=== PATIENT | female | born 1995 | race Caucasian/White ===

== ENCOUNTER 2020-05-19 18:27 | Inpatient (IN) | payer MEDICAID, SELFPAY ==
[2020-05-19] VITALS (12 sets, daily range): BP systolic 112–129; BP diastolic 60–74; PULSE 69–76; RESP 16; TEMP 36.2–36.7; O2SAT 98; BMI 38.7
[2020-05-19] MEDS: Lactated Ringers 1,000 ML 50 ML IV (18:00)
[2020-05-19 18:08] LABS: ROM Internal Control Test YES-OK TO RESULT pt. (Internal QC)
[2020-05-19 18:11] LABS: ROM Patient Test POSITIVE (Negative)
--- NOTE | 2020-05-19 18:52 | HP.PCM_ITS ---
- Problem List (1) Active labor at term Status: Acute (2) SROM (spontaneous rupture of membranes) Status: Acute (3) Genital herpes complicating Status: Acute (4) History of depressed bipolar disorder Status: Acute (5) Borderline personality disorder Status: Acute (6) PTSD (post-traumatic stress disorder) Status: Acute (7) Late care Status: Acute (8) Marijuana use Status: Acute (9) History of spontaneous Status: Acute History Date of Admission: 05/19/20 Final CAR: 05/20/20 Final CAR Source: US >20 weeks Gestational age: 39 Weeks and 6 Days History of this : This is a 24 year-old, G [3], P [1011], at 39 weeks 6 days gestational age. Presented to office today for visit and requested membrane stripping. After appointment today she started having contractions around 10am and felt fluid leakage. She feels she has been leaking since that time. No vaginal bleeding. Good movement. Smoking Status: Former smoker Alcohol: None Substance Use Type: Marijuana Number of Fetus(es): 1 NST - FHR Rate Baby A Baseline: 125 Variability:: Moderate Accelerations:: 15 x 15 Decelerations:: None NST Reactive:: Yes FHR Category:: Category I Uterine Activity:: every 2-3 minutes, strong History Past Pregnancies: Past Pregnancies Delivery Date Name GA/ Weeks Outcome Route Wt Infant Sex Labor Length Anesthesia Delivery Location Provider FOB Labs: RPR negative HIV negative HbsAG negative Rubella Immune O positive Hep C negative GC/CT negative GBS negative Expected Delivery Method: Spontaneous Vaginal Review of Systems Constitutional: Denies: Chills, Fever, Weight Change HEENT: Denies: Head Aches, Sinus Congestion, Sinus Drainage Cardiovascular: Denies: Chest Pain, Palpitations Respiratory: Denies: Cough, Shortness of breath at rest, Sputum production Gastrointestinal: Denies: Abdominal Pain, Nausea, Vomiting Genitourinary: Denies: Dysuria Skin: Denies: Rash, Wounds Neurological: Denies: Numbness, Tingling, Focal weakness Psychiatric: Denies: Anxiety, Depression, Homicidal Ideations, Suicidal Ideations Physical Exam Vitals: Vital Signs Pulse BP 74 117/60 05/19/20 18:02 05/19/20 18:02 General: Alert, Oriented x3, Cooperative HEENT: Atraumatic, Normocephalic Cardiovascular: Regular rate, Regular Rhythm, No murmurs Lungs: Clear to auscultation, Normal air movement, No rhonchi, No wheeze Abdomen: Bowel Sounds Present, Gravid Extremities:: No edema Neurological: Deep Tendon Reflexes 2+/4 and Symmetrical. Negative for: Clonus STAFF PSYCHIATRIST: Normal external genitalia Estimated gestational size: Appropriate for gestational size Presentation: Cephalic Cervix Dilation (cm): 4 - Per Nubia, RN Station: -1 Effacement (%): 90 - AROM clear fluid Assessment/Plan All Active Problems Active labor at term (Acute) SROM (spontaneous rupture of membranes) (Acute) Genital herpes complicating (Acute) History of depressed bipolar disorder (Acute) Borderline personality disorder (Acute) PTSD (post-traumatic stress disorder) (Acute) Late care (Acute) Marijuana use (Acute) History of spontaneous (Acute) This is a 24 year-old, G [3], P [1011], at 39 weeks 6 days gestational age. A:Active Labor SROM Category 1 FHT GBS negative History of genital herpes P: 1)Admit to labor and delivery 2) IV saline lock, labs 3) Continuous EFM 4) Pain management upon request 5) notified of patient status in labor.
[2020-05-19 19:06] LABS: Absolute Lymphocyte Count 2.62 X10^3/uL (0.83-4.51); Absolute Neutrophil Count 12.1 X10^3/uL (2.0-7.7); Basophil# 0.05 X10^3/uL; Basophil% 0.3 % (0-1); Eosinophil# 0.14 X10^3/uL; Eosinophils% 0.9 % (0-5); Hematocrit 33.1 % (37-47); Hemoglobin 10.8 g/dL (12.0-15.0); Lymphocyte # 2.62 X10^3/ul (4.0); Lymphocyte % 16.1 % (19-41); Mean Corp Hgb Conc 32.6 g/dL (32-36); Mean Corpuscular Hgb 28.3 pg (27.0-32.0); Mean Corpuscular Volume 86.6 fL (81-99); Monocyte# 1.16 X10^3/uL; Monocyte% 7.1 % (0-10); NRBC Flagged by Analyzer 0 % (0-5); Neutrophil # 12.11 X10^3/uL (2.7-7.7); Neutrophil % 74.4 % (47-70); Platelet Count 197 K/mm3 (150-450); RBC Distribution Width CV 14.7 % (11.6-14.6); RBC Distribution Width SD 45.9 fl (35.1-43.9); Red Blood Count 3.82 M/mm3 (4.2-5.4); White Blood Count 16.3 K/mm3 (4.4-11.0)
[2020-05-19] MEDS: Oxytocin 30 units/NS 500 ml 30 UNITS/500 ML IV.SOLN 334 UNITS IV (20:35)
--- NOTE | 2020-05-19 20:41 | PCM.OPRPT ---
Problem List (1) Active labor at term Status: Acute (2) SROM (spontaneous rupture of membranes) Status: Acute (3) Genital herpes complicating Status: Acute (4) History of depressed bipolar disorder Status: Acute (5) Borderline personality disorder Status: Acute (6) PTSD (post-traumatic stress disorder) Status: Acute (7) Late care Status: Acute (8) Marijuana use Status: Acute (9) History of spontaneous Status: Acute (10) Vaginal delivery Status: Acute Vaginal Delivery Maternal Presentation: Active Labor Amniotic Membrane Rupture Type: Spontaneous Amniotic Fluid Description: Clear Final CAR Source: US <20 weeks Gestational age: 39w6d Date of Procedure: 05/19/20 Pre-Operative Diagnosis: active labor Post-Operative Diagnosis: Surgery/ Procedure Performed: Spontaneous Vaginal Delivery Type of Anesthesia: None Description of Procedure: Progressed quickly from 4cm to complete. Strong urge to push. Called to hospital when patient 9cm. Upon arrival infant delivered. Infant head delivered by NIKOLAY Delacruz. on unit and delivered body without complication. I arrived and on abdomen skin to skin. Mouth and nares wiped for secretions, spontaneous cry. Pitocin started for active 3rd stage management. Placenta delivered with maternal effort, intact, 3 vessel cord. Perineum inspected and revealed intact perineum. Vaginal sweep completed. Fundus firm, hemostasis achieved, 200ml EBL. Sponge and instrument count correct. Mom and baby stable. Family bonding well. notified. Presentation: Vertex Placental Delivery Description: Spontaneous Placenta Disposition: [facility] Cord Vessel Description: 3 Vessels Cord Entanglement: None Estimated Blood Loss: 200ml A gender: Male (1 minute): 8 (5 minute): 9 Episiotomy Description: None Laceration: None Medications given after delivery: IV Pitocin Complications: None
[2020-05-19] MEDS: Ibuprofen 600 MG Tablet PO (21:31)
[2020-05-19 21:36] LABS: Probe Check PASS; Specimen Processing Control PASS
[2020-05-19] MEDS: Acetaminophen 500 MG Tablet 1000 MG PO (22:34)
[2020-05-19] MEDS: Dibucaine 30 GM Tube 1 APPLIC TOPICAL (22:36)
[2020-05-20] VITALS (11 sets, daily range): BP systolic 112–130; BP diastolic 57–75; PULSE 69–76; RESP 16–18; TEMP 36.1–36.7; O2SAT 98–100
--- NOTE | 2020-05-20 00:30 | NURSING ---
Report received from Aminta LINK, taking over pt care at this time.
--- NOTE | 2020-05-20 00:30 | NURSING ---
report given to robyn LINK. that rn to assume care of pt at this time.
--- NOTE | 2020-05-20 01:20 | NURSING ---
Pt emptied bladder per report, requesting IV to be removed.
--- NOTE | 2020-05-20 03:45 | PCM.PN.OB ---
Patient Problems: Active and Suspected Problems Active labor at term (Acute) SROM (spontaneous rupture of membranes) (Acute) Genital herpes complicating (Acute) History of depressed bipolar disorder (Acute) Borderline personality disorder (Acute) PTSD (post-traumatic stress disorder) (Acute) Late care (Acute) Marijuana use (Acute) History of spontaneous (Acute) Vaginal delivery (Acute) Subjective: Doing well per patient and nursing staff. Ambulating and taking PO without difficulty. Voiding and passing flatus. Lochia normal. pain controlled. Bottle feeding. - Physical Exam Vitals/I&O's: Vital Signs Temp Pulse Resp BP Pulse Ox 97.9 F 69 16 112/57 L 98 05/20/20 00:15 05/20/20 00:16 05/20/20 00:15 05/20/20 00:16 05/19/20 22:39 Oxygen Delivery Method Room Air Weight: 218 lb 8 oz Body Mass Index (BMI) 38.7 Intake and Output for Last 24 Hours 05/18/20 05/19/20 05/20/20 23:59 23:59 23:59 Intake Total 628.33 / 628.33 Balance 628.33 / 628.33 General: Alert, Cooperative HEENT: Atraumatic, Normocephalic Neck: Trachea Midline Lungs: Clear to auscultation, Normal air movement, No rhonchi, No wheeze Cardiovascular: Regular rate, Regular Rhythm, No murmurs Abdomen: Bowel Sounds Present, Soft, Non Tender Extremities: No edema Psych/Mental Status: Normal Affect, Appropriate Laboratory Results 05/19/20 17:20: Vag Amniotic Fld Detect POSITIVE H 05/19/20 18:30: WBC 16.3 H, RBC 3.82 L, Hgb 10.8 L, Hct 33.1 L, MCV 86.6, MCH 28.3, MCHC 32.6, RDW Std Deviation 45.9 H, RDW Coeff of Gui 14.7 H, Plt Count 197, MPV 10.0, Immature Gran % (Auto) 1.200 H, Neut % (Auto) 74.4 H, Lymph % (Auto) 16.1 L, Whitley % (Auto) 7.1, Eos % (Auto) 0.9, Baso % (Auto) 0.3, Absolute Neuts (auto) 12.1 H, Absolute Lymphs (auto) 2.62, Nucleated RBC % 0 05/19/20 18:30: Blood Type O POSITIVE, Antibody Screen NEGATIVE 05/19/20 20:25: COVID-19 (MARILEE) Negative Current Medications Acetaminophen (Tylenol) 1,000 mg PO Q8H PRN PRN PRN Reason: Pain Score 1-10/10 Last Admin: 05/19/20 22:34 Dose: 1,000 mg Documented by: Bisacodyl (Dulcolax) 10 mg RECTAL UD PRN PRN Reason: If no BM Dibucaine (Dibucaine) 1 applic TOPICAL TID PRN PRN; Protocol PRN Reason: Discomfort Last Admin: 05/19/20 22:36 Dose: 1 tube Documented by: Hydrocortisone (Hytone) 1 applic TOPICAL TID PRN PRN; Protocol PRN Reason: Discomfort Ibuprofen (Motrin) 600 mg PO Q6H PRN PRN PRN Reason: Pain Score 1-10/10 Methylergonovine Maleate (Methergine) 0.2 mg IM X1 PRN PRN Reason: Excess bleeding/uterine atony Ondansetron HCl (Zofran) 4 mg IV Q4H PRN PRN PRN Reason: Nausea Senna/Docusate Sodium (Senokot-S, Najma-Colace) 1 - 2 tablet PO DAILY PRN PRN PRN Reason: Constipation Simethicone (Mylicon) 80 mg PO PCHS PRN PRN Reason: Indigestion/Stomach pain Sodium Chloride () 5 - 15 ml IV UD PRN PRN Reason: SALINE FLUSH Medical Necessity - Tobacco Use Smoking Status: Current every day smoker Assessment/Plan All Active Problems Active labor at term (Acute) SROM (spontaneous rupture of membranes) (Acute) Genital herpes complicating (Acute) History of depressed bipolar disorder (Acute) Borderline personality disorder (Acute) PTSD (post-traumatic stress disorder) (Acute) Late care (Acute) Marijuana use (Acute) History of spontaneous (Acute) Vaginal delivery (Acute) A: PPD #1 P: 1) Routine care 2) Pain management 3) Planning D/C home tomorrow 4) director of home health services consultation due to marijuana use and psych history.
[2020-05-20] MEDS: Ibuprofen 600 MG Tablet PO ×3 (03:55→18:06)
--- NOTE | 2020-05-20 04:17 | DCINST_ITS ---
Discharge Diet: No Restrictions Discharge Activity: Return to Normal Activity, May not drive while taking narcotic pain medications., May Shower May resume sexual activity in: 4-6 weeks Weight Bearing Status: Full weight bearing Additional Activity Instructions:: Nothing in the vagina for 4-6 weeks. You may return to work/school in 6 weeks. Call your doctor if your incision/area has: Continuous Slow Oozing, Sudden Increased Bleeding, Increased Pain/ Swelling, Increased Redness, Foul Smelling Discharge Call your doctor if you observe: Fever of 101 or Higher Additional Instructions: If you experience any of the following, contact your healthcare provider. * Bleeding that soaks a pad every hour for 2 hours * Fever 100.4 or higher * Unrelieved incision or abdominal pain * Swelling, redness, discharge or bleeding from your incision or episiotomy site * Your incision begins to separate * Problems urinating (including inability to urinate or burning while ur inating). * Visual changes * Severe headache * Flu-like symptoms * Pain or redness in one of both of your breasts * Pain, warmth, tenderness or swelling in your legs, especially the calf area * Frequent nausea and vomiting * Symptoms of depression or anxiety If you experience any of the following, call 911 or go to the nearest Emergency Room. * Chest pain * Problems breathing * Seizure activity * Partial or complete paralysis of a body part, slurred speech, weakness or drooping of the face, or a sudden inability to walk or hold your balance Allergies/Adverse Reactions: Allergies amoxicillin Allergy (Verified 05/19/20 19:40) Rash latex Allergy (Verified 05/19/20 19:41) Rash Penicillins Allergy (Verified 05/19/20 19:40) Rash prednisone Adverse Reaction (Verified 05/19/20 19:40) Shortness of breath Medications to take at Discharge Prenatabs FA 1 tab PO DAILY 05/19/20 Please Follow Up With: Padmini Stockton CNM When: Call to make an appointment with your doctor in 2 weeks virtual and 6 weeks . Primary Care Physician: Care Physician,No Primary [Primary Care Provider] - Test Results: Test results from this visit will be discussed in further detail at your follow- up appointment, if applicable.
--- NOTE | 2020-05-20 05:00 | NURSING ---
Pt up to bathroom to void, x1 golf ball sized clot noted in toilet after pt reported passing large clot. Pt educated and RN will continue to assess.
[2020-05-20 05:26] LABS: Hematocrit 29.7 % (37-47); Hemoglobin 9.8 g/dL (12.0-15.0); Mean Corpuscular Hgb 28.2 pg (27.0-32.0); Mean Corpuscular Volume 85.3 fL (81-99); Platelet Count 197 K/mm3 (150-450); RBC Distribution Width CV 14.4 % (11.6-14.6); RBC Distribution Width SD 44.3 fl (35.1-43.9); Red Blood Count 3.48 M/mm3 (4.2-5.4); White Blood Count 17.5 K/mm3 (4.4-11.0)
[2020-05-20] MEDS: Acetaminophen 500 MG Tablet 1000 MG PO ×2 (08:09→15:59)
[2020-05-20] MEDS: Senna/Docusate Sodium 1 Tablet PO ×2 (10:52→20:43)
--- NOTE | 2020-05-20 16:15 | CASEMGMT ---
Social Work Assessment Labor and Delivery Unit Date of Referral: 05/20/2020 Date of Intervention: 05/20/2020 Time of Intervention: 16:15 Reason for Referral: History of Bipolar Disorder, Borderline Personality Disorder, PTSD, and Anxiety. THC use during . History obtained from: Medical record, MOB (Mother of Baby) and FOB (Father of Baby) Household composition: MOB, FOB, and MOB?s 5-year-old son, Shorty. Educational Status: 10th Grade Education Financial Status: Limited. One income household. FOB works in construction. Infant Supplies: MOB reports has all needs met for baby including diapers, wipes, car seat, crib, clothes Childcare/Caregiver(s): MOB and FOB Transportation: Deny any issues with transportation. Programs/Agencies Involved: [facility], Counseling in the past Children Services/Legal Issues: MOB denies any history with Children Services Behavioral Health Issues: Mental Health History: MOB admits to history of Bipolar Disorder, Borderline Personality Disorder, PTSD and anxiety. MOB states was treated with medication in the past, but did not want to be on medication during . MOB reports followed with counseling in the past and lacked motivation to get connected with counseling services once moved to [place]. MOB reports to be ?doing well? with her mental health and mood and denies any needs for referrals. MOB open to resources and states once settled at home will look into services. Substance Use History: MOB admits to use of marijuana throughout and denies daily use. MOB states had issues with hip pain and sleeping and marijuana ?helped.? MOB also states drank caffeine daily during and smoked cigarettes. MOB reports smokes 1/2-1 pack/day. Support Systems: MOB and FOB report good support from FOB?s family and state that is why they moved to [place] 5 months ago from [place]. Depression/Shaken Baby/Safe Sleeping Reviewed and resources provided. ASSESSMENT: Met with MOB and FOB, Myles Wagner in room. Upon entering room nurseAnn Marie in with MOB and FOB while MOB bottle feeding baby boy, Judson. Introduced role and reason for referral. MOB discussed mental health history. MOB states was in counseling in the past and treated with medication. MOB reports does not feel that counseling helped and the agency she followed with in [place] is now shut down. MOB states ?bad experiences? with psychiatrists. MOB is open to local mental health resources and states will look into services once ?settled? at home. MOB admits to use of marijuana throughout due to issues with sleep and hip pain. Informed MOB will be making report to Children Services due to use during . MOB and FOB verbalize understanding. MOB denies any previous history with Children Services. MOB informed this worker she became at the age of 17 and has an 8-year-old, Edwin who lives with her father?s ex-. MOB states has custody of her 5 year old, Shorty. FOB reports baby boy, Judson is his first child. MOB provided with list of local resources along with information on Post- Depression. MOB and FOB deny any questions or concerns. Discussed assessment with MOB?s nurse, Ann Marie. Ann Marie denies any issues or additional concerns and states MOB and FOB are bonding well with baby. PLAN: Home with resources provided. Report to be made to Children Services. Will watch for meconium results. No other services requested or indicated. -Edwige Rueda, AUTOMOBILE BODY REPAIRER HELPER, [employer] CRACKING TESTER
[2020-05-21] VITALS (7 sets, daily range): BP systolic 109–121; BP diastolic 58–71; PULSE 65–73; RESP 16; TEMP 36.5–36.9; O2SAT 98–99
[2020-05-21] MEDS: Ibuprofen 600 MG Tablet PO ×2 (00:18→07:34)
[2020-05-21] MEDS: Acetaminophen 500 MG Tablet 1000 MG PO ×2 (02:26→11:55)
--- NOTE | 2020-05-21 09:59 | PCM.PN.OB ---
Patient Problems: Active and Suspected Problems Active labor at term (Acute) SROM (spontaneous rupture of membranes) (Acute) Genital herpes complicating (Acute) History of depressed bipolar disorder (Acute) Borderline personality disorder (Acute) PTSD (post-traumatic stress disorder) (Acute) Late care (Acute) Marijuana use (Acute) History of spontaneous (Acute) Vaginal delivery (Acute) Subjective: Doing well per patient and nursing staff. Ambulating and taking PO without difficulty. Voiding and passing flatus. Bottle feeding. Planning D/C home today. - Physical Exam Vitals/I&O's: Vital Signs Temp Pulse Resp BP Pulse Ox 98.1 F 71 16 118/71 99 05/21/20 07:44 05/21/20 07:44 05/21/20 07:44 05/21/20 07:44 05/21/20 07:44 Oxygen Delivery Method Room Air Weight: 218 lb 8 oz Body Mass Index (BMI) 38.7 Intake and Output for Last 24 Hours 05/19/20 05/20/20 05/21/20 23:59 23:59 23:59 Intake Total 628.33 / 628.33 Balance 628.33 / 628.33 General: Alert, Cooperative HEENT: Atraumatic, Normocephalic Neck: Trachea Midline Lungs: Clear to auscultation, Normal air movement, No rhonchi, No wheeze Cardiovascular: Regular rate, Regular Rhythm, No murmurs Abdomen: Bowel Sounds Present, Soft - fundus firm 2 below U Extremities: No edema Psych/Mental Status: Normal Affect, Appropriate Current Medications Acetaminophen (Tylenol) 1,000 mg PO Q8H PRN PRN PRN Reason: Pain Score 1-10/10 Last Admin: 05/21/20 02:26 Dose: 1,000 mg Documented by: Bisacodyl (Dulcolax) 10 mg RECTAL UD PRN PRN Reason: If no BM Dibucaine (Dibucaine) 1 applic TOPICAL TID PRN PRN; Protocol PRN Reason: Discomfort Last Admin: 05/19/20 22:36 Dose: 1 tube Documented by: Hydrocortisone (Hytone) 1 applic TOPICAL TID PRN PRN; Protocol PRN Reason: Discomfort Ibuprofen (Motrin) 600 mg PO Q6H PRN PRN PRN Reason: Pain Score 1-10/10 Last Admin: 05/21/20 07:34 Dose: 600 mg Documented by: Methylergonovine Maleate (Methergine) 0.2 mg IM X1 PRN PRN Reason: Excess bleeding/uterine atony Ondansetron HCl (Zofran) 4 mg IV Q4H PRN PRN PRN Reason: Nausea Senna/Docusate Sodium (Senokot-S, Najma-Colace) 1 - 2 tablet PO DAILY PRN PRN PRN Reason: Constipation Last Admin: 05/20/20 20:43 Dose: 1 tablet Documented by: Simethicone (Mylicon) 80 mg PO PCHS PRN PRN Reason: Indigestion/Stomach pain Sodium Chloride () 5 - 15 ml IV UD PRN PRN Reason: SALINE FLUSH Medical Necessity - Tobacco Use Smoking Status: Current every day smoker Assessment/Plan All Active Problems Active labor at term (Acute) SROM (spontaneous rupture of membranes) (Acute) Genital herpes complicating (Acute) History of depressed bipolar disorder (Acute) Borderline personality disorder (Acute) PTSD (post-traumatic stress disorder) (Acute) Late care (Acute) Marijuana use (Acute) History of spontaneous (Acute) Vaginal delivery (Acute) A: PPD #2 P: 1) Discharge instructions 2) D/C home today 3) follow up in 2weeks and 6 weeks
--- NOTE | 2020-05-22 10:33 | CASEMGMT ---
SOCIAL WORK Report made to Taina with [facility] due to MOB's use of THC throughout . Will update with results of meconium once received. Vani Rueda, PLATING TECHNICIAN, WARD MAID
== END 2020-05-21 12:10 | disposition home or self-care (01) | DRG 560 ==
LOC: WPOUT 18:28 → WP 18:28
PROVIDERS: Admitting Provider Advanced Practice Midwife; Referring Provider Advanced Practice Midwife; Visit Provider Advanced Practice Midwife
DX: O98.32 Other infections with a predominantly sexual mode of transmission complicating childbirth (principal); A60.09 Herpesviral infection of other urogenital tract; Z37.0 Single live birth; F17.200 Nicotine dependence, unspecified, uncomplicated; O99.334 Smoking (tobacco) complicating childbirth; F12.90 Cannabis use, unspecified, uncomplicated; O99.324 Drug use complicating childbirth; Z3A.39 39 weeks gestation of pregnancy
CPT/HCPCS: 59025; 59050; 84112; 85025; 85027; 86850; 86900; 86901; 87635; 94799; 99218; J7120; G0378; U0003

== ENCOUNTER 2020-08-07 12:43 | Emergency (ER) | payer MEDICAID, SELFPAY ==
[2020-05-19 17:00] VITALS: BMI 38.7
[2020-08-07 12:44] VITALS: BP 134/59; PULSE 84; RESP 17; TEMP 36.2; O2SAT 98; BMI 33.6
[2020-08-07] MEDS: Ketorolac 30 MG/ML Syringe IM (13:56)
[2020-08-07 14:17] LABS: Mucous, Urine 0 SEEN /hpf (<or=2+)
[2020-08-07 14:20] LABS: Color, Urine Yellow (Yellow); Glucose, Dipstick Normal (Normal); Ketone-Dipstick Negative (Negative); Leukocyte Esterase-Dipstick 100 /ul (Negative); Nitrite-Dipstick Negative (Negative); Occult Blood-Urine 250 /ul (Negative); Protein-Dipstick 30 mg/dl (Negative); Urine Bilirubin Dipstick Negative (Negative); Urine Clarity Sl. Cloudy (Clear); Urine Urobilinogen 1 mg/dl (Normal)
--- NOTE | 2020-08-07 14:23 | ED.DCSUM_ITS ---
History of Present Illness Chief Complaint: Flank Pain Narrative: Patient presenting for evaluation secondary to flank pain. Patient has an underlying history of having kidney stones since she was 16 years old. This morning she woke up with a sudden onset of right-sided flank pain that she felt was consistent with a kidney stone. This been associated with some urinary hesitancy. She denies any nausea vomiting. She denies any fevers. She does report she has had some mild hematuria. She took some Tylenol for this with minimal relief but it seems to be wearing off. No exacerbating factors associated with this. Patient is about 2-1/2 months . Review of systems otherwise negative. Past Medical History - Allergies and Home Meds Allergies/Adverse Reactions: Allergies amoxicillin Allergy (Verified 08/07/20 12:43) Rash latex Allergy (Verified 08/07/20 12:43) Rash Penicillins Allergy (Verified 08/07/20 12:43) Rash prednisone Adverse Reaction (Verified 08/07/20 12:43) Shortness of breath Primary Care Physician: Care Physician,No Primary [Primary Care Provider] - Prior records reviewed: Yes Past Medical History: - - Prior history of kidney stones Lives: With Family Smoking Status: Current every day smoker Alcohol: None Drugs: None Review of Systems Gastrointestinal: Reports: Abdominal pain, - - Flank pain Genitourinary: Reports: Dysuria, Hematuria Physical Exam Vital Signs/Narrative: Vital Signs Temp Pulse Resp BP Pulse Ox 08/07/20 12:44 97.2 F L 84 17 134/59 H 98 Inital Vital Signs reviewed: Yes General: Well nourished, Well developed, No Acute Distress Head: Normocephalic, Atraumatic Eyes: Perrl, EOMI ENT: Moist mucous membranes, No rhinorrhea Neck: Supple, Nontender Cardiovascular: Regular rate, Regular rhythm, No murmurs Respiratory: No distress, CTA bilaterally, Chest nontender Abdomen: Soft, Nontender, Nondistended, Normal bowel sounds Back: Nontender, Normal Inspection Extremities: Nontender, No edema Skin: Normal color, No rash Neurological: Alert, Oriented x3, Cranial nerves II-XII grossly intact, Normal Strength, Normal Sensation Psychological: Normal affect, Normal Mood Diagnostic/Tx/Re-eval - Medical Decision Making Patient presented secondary to flank pain. She the onset of pain today, does not appear in extremis I do not feel that IV or blood labs are indicated. P atient was given IM Toradol, bedside ultrasound on the patient shows right-sided hydronephrosis. Patient had some improvement with administration of Toradol. Patient at this point likely has passing a kidney stone. I believe that she is stable and appropriate for discharge. She will be sent home with a course of Toradol and Flomax. Patient is never followed up with a urologist to be given urology for follow-up. She was educated on signs and symptoms which to return. Should the patient's urine result as negative for infection she will be discharged with the above plan. ED Disposition - Plan for ED Patient: Disposition: Home or Assisted Living Diagnosis: Urolithiasis Instructions: ED Renal Stone w Colic Prescriptions: Tamsulosin HCl [Flomax] 0.4 mg PO DAILY #7 cap Prescription Printed Ketorolac [Toradol] 10 mg PO Q6H #20 tab Prescription Printed Referrals: Paula Mcghee MD [STAFF PHYSICIAN] - 5-7 Days
[2020-08-07 14:26] LABS: Bacteria 1+ /hpf (None Seen); Red Blood Cells-Urine 25-50 SEEN /hpf (0-5); Squamous Epithelial Cells - UA 0-5 SEEN /hpf (5-10); White Blood Cells 10-25 SEEN /hpf (0-5)
== END 2020-08-07 14:43 | disposition home or self-care (01) ==
PROVIDERS: Emergency Provider Emergency Medicine
DX: N13.2 Hydronephrosis with renal and ureteral calculous obstruction (principal); Z87.442 Personal history of urinary calculi; F17.200 Nicotine dependence, unspecified, uncomplicated
CPT/HCPCS: 81001; 87086; 87088; 96372; 99282

== ENCOUNTER 2020-10-20 14:09 | Emergency (ER) | payer MEDICAID, SELFPAY ==
[2020-10-20 14:10] VITALS: BP 141/100; PULSE 101; RESP 16; TEMP 36.9; O2SAT 100; BMI 34.5
--- NOTE | 2020-10-20 14:38 | EKG12_ITS ---
Test Reason : CP Blood Pressure : / mmHG Vent. Rate : 089 BPM Atrial Rate : 089 BPM P-R Int : 146 ms QRS Dur : 086 ms QT Int : 382 ms P-R-T Axes : 051 059 063 degrees QTc Int : 464 ms Normal sinus rhythm Septal infarct , age undetermined Abnormal ECG Confirmed by JOSÉ MANUEL TYSON, ALFONSO ([id number]), script editor ANDREINA TITUS ([id number]) on 10/23/2020 8:54:17 AM Referred By: BB Confirmed By:ALFONSO GEORGES MD
[2020-10-20] MEDS: 0.9% Normal Saline 1,000 ML 1000 ML IV (14:54)
[2020-10-20 14:55] LABS: Absolute Lymphocyte Count 2.57 X10^3/uL (0.83-4.51); Absolute Neutrophil Count 7.5 X10^3/uL (2.0-7.7); Basophil# 0.04 X10^3/uL; Basophil% 0.4 % (0-1); Eosinophil# 0.47 X10^3/uL; Eosinophils% 4.2 % (0-5); Hematocrit 40.9 % (37-47); Hemoglobin 13.1 g/dL (12.0-15.0); Lymphocyte # 2.57 X10^3/ul (4.0); Lymphocyte % 22.7 % (19-41); Mean Corpuscular Hgb 26.8 pg (27.0-32.0); Mean Corpuscular Volume 83.8 fL (81-99); Mean Platelet Vol. 9.8 fl (6.2-12.0); Monocyte# 0.67 X10^3/uL; Monocyte% 5.9 % (0-10); NRBC Flagged by Analyzer 0 % (0-5); Neutrophil # 7.51 X10^3/uL (2.7-7.7); Neutrophil % 66.4 % (47-70); Platelet Count 272 K/mm3 (150-450); RBC Distribution Width SD 42.7 fl (35.1-43.9); Red Blood Count 4.88 M/mm3 (4.2-5.4); White Blood Count 11.3 K/mm3 (4.4-11.0)
[2020-10-20 14:57] VITALS: O2SAT 98
[2020-10-20 15:03] LABS: Internal QC Validated? YES +Cl - CLEAR BKGD; Pregnancy, Serum, hCG Quali. NEGATIVE Negative
[2020-10-20 15:08] LABS: D-Dimer Quantitative (DVT/PE) < 0.27 FEU/ug/m (0.27-0.49)
--- NOTE | 2020-10-20 15:10 | RAD_ITS ---
STUDY: X-RAY CHEST REASON FOR EXAM: Female, 25 years old. Chest tightness, left arm pain TECHNIQUE: Single AP portable view of the chest. COMPARISON: None. FINDINGS: The lungs are clear and expanded. There is no demonstrated pleural abnormality. Normal size heart. Normal mediastinum and uzair. Normal visualized pulmonary arteries. Normal visualized aortic arch and descending thoracic aorta. Normal visualized thoracic spine. Normal visualized ribs, clavicles, and shoulders. There is no demonstrated abnormality of the visualized soft tissue structures of the upper abdomen. RAD/Chest 1 View (Portable) IMPRESSION: Normal x-ray examination of the chest. Electronically Signed: Rogelio Parks MD at 15:44 EST , Service support ,
[2020-10-20 15:13] LABS: Anion Gap 5 (5-15); BUN 12 mg/dL (7-18); BUN/Creat Ratio 11.5 RATIO (10-20); Calcium,Total 9.1 mg/dL (8.5-10.1); Chloride 109 mmol/L (98-107); Creatinine, Serum 1.04 mg/dL (0.55-1.02); EST Glomerular Filtration Rate 69 mL/min (>60); Est Glom Filt Rate - Afr Amer 84 mL/min (>60); Glucose 104 mg/dL (74-106); Potassium 3.7 mmol/L (3.5-5.1); Sodium Level 138 mmol/L (136-145)
--- NOTE | 2020-10-20 15:25 | CT_ITS ---
HISTORY: NECK/EAR PAIN, LEFT ARM NUMBNESS COMPARISON: None. TECHNIQUE: Helical CT axial images are obtained from the thoracic inlet through the skull base with ml of 100mL Isovue-370 intravenous contrast. Multiplanar reconstruction. 3D image processing was also performed. NASCET criteria using the distal ICAs for comparison were used for evaluation of carotid stenosis. A radiation dose optimization technique was used for this scan. # of images incl. paperwork: [id number] FINDINGS: CAROTID: RIGHT: Normal appearing carotid bifurcation. Cervical course of the internal carotid artery is within normal limits without focal stenosis, aneurysm, or dissection. Normal CCA. Origin and proximal visualized branches of the external carotid artery appears normal. LEFT: Normal appearing carotid bifurcation. Cervical course of the internal carotid artery is within normal limits without focal stenosis, aneurysm, or dissection. Normal CCA. Origin and proximal visualized branches of the external carotid artery appears normal. VERTEBRAL: Bilateral vertebral arteries have a normal appearance with co-dominance. OTHER: Origin of the great vessels are within normal limits. SOFT TISSUES: Unremarkable. CT/CTA Neck W/WO Contrast IMPRESSION: 1. Negative CTA of the neck. Individualized dose optimization techniques were used for this CT. at 1633 Reported and signed by: Jona Howell MD Electronically Signed: oJna Howell MD at 16:31 EST Tel , Service support ,
--- NOTE | 2020-10-20 15:44 | ED.VISSUMM ---
- ER Visit Summary Date of Service: 10/20/20 Chief Complaint: Chest, neck, and left ear pain History of Present Illness: The patient is a 25 F with no primary care physician. She reports that 1:00 this morning while she was at rest she had new onset of left-sided chest pain that radiates up into her neck to her left ear and down her left arm. Is an aching continuous pain is 7-10 at worst and 6 out of 10 currently. Is worsened by breathing. She relieved by nothing. She taken Tylenol and Excedrin without relief. She reports that she has felt a little bit short of breath. No nausea, vomiting, or diaphoresis. Patient denies sick contacts. She does wear a mask. No personal or family history of DVT. No ankle swelling or calf pain. No fever or chills. She had a nonproductive cough for the past 2 days. Physical Examination: Vitals: Stable. Afebrile. General: Well-nourished and well-developed. Head: Normocephalic atraumatic. HEENT: Serous effusion behind the left TM. No evidence of purulent otitis media. Neck: Supple, no lymphadenopathy. No JVD. Nontender. Cardiovascular: Regular rate and rhythm. No murmurs. Respiratory: No respiratory distress. Clear to auscultation bilaterally. Abdominal: Soft, nontender, nondistended, normal bowel sounds. No guarding, rebound, or peritoneal signs. Back: Nontender. Extremities: Nontender, no edema. Skin: Normal color, no rash. Neurologic: Alert and oriented ?3. Cranial nerves II through XII are intact. Normal strength and sensation. Psych: Normal affect. Test Results: EKG is sinus at 89 with no acute changes. Troponin is negative. D-dimer is negative. test is negative. Chem-7 shows a chloride of 109 and creatinine 1.04. CBC shows a white count 11.3. Covid rapid antigen is negative. Clinical Impression(s) from Imaging Studies Chest X-Ray 10/20/20 15:10 IMPRESSION: Normal x-ray examination of the chest. Electronically Signed: Rogelio Parks MD at 15:44 EST , Service support , Neck CTA 10/20/20 15:25 IMPRESSION: 1. Negative CTA of the neck. Individualized dose optimization techniques were used for this CT. at 1633 Reported and signed by: Jona Howell MD Electronically Signed: Jona Howell MD at 16:31 EST Tel , Service support , Emergency Department Course and Treatment: Patient was given Toradol IV. She is resting comfortably. Treatment Plan: Patient be discharged with instructions use Tylenol and/or ibuprofen for pain. Use warm compresses to her neck. Follow-up with the [facility] in 3 to 5 days if not improving. Return to the emergency department for any worsening symptoms. Disposition: To home in improved and stable condition. Impression: 1. Atypical chest pain. 2. Serous effusion left ear. This note was generated with [employer] dictation software. It may contain incorrect words, spelling, and punctuation that were not noted in review of the chart prior to signing ED Disposition - Plan for ED Patient: Instructions: ED Chest Pain, Uncertain Cause Referrals: [facility] [NON-STAFF] - 3-5 Days if not improving
[2020-10-20 16:47] VITALS: BP 122/87; PULSE 101; RESP 16; O2SAT 100
== END 2020-10-20 16:49 | disposition home or self-care (01) ==
LOC: ED 14:56
PROVIDERS: Emergency Provider Emergency Medicine
DX: R07.89 Other chest pain (principal); H93.8X2 Other specified disorders of left ear; R06.00 Dyspnea, unspecified; R05 Cough; M54.2 Cervicalgia; F17.200 Nicotine dependence, unspecified, uncomplicated
CPT/HCPCS: 70498; 71045; 80048; 84484; 84703; 85025; 85379; 87426; 93005; 96360; 96361; 99284; J7030; Q9967; A4216